=== PATIENT | male | born 1975 | race Caucasian/White ===

== ENCOUNTER → 2020-12-11 | Outpatient (CLI) | payer BC ==
[~2020-12-11] MED LIST: ALLEGRA-D 24 H1 EACH PO; FLONASE 0.05%50 MCG NASAL; IBUPROFEN 800800 M1 PO; ROBAXIN 750 MG750 M1 PO
== END ==
LOC: M.MRI 11:06
PROVIDERS: ATTEND Family Medicine
DX: M47.22 Other spondylosis with radiculopathy, cervical region (principal); M48.02 Spinal stenosis, cervical region